=== PATIENT | male | born 1990 | race Hispanic/Latino ===

== ENCOUNTER 2019-04-04 14:10 | Observation (INO) | payer SELFPAY ==
[~2019-04-04] VITALS: Ht 188 cm; Wt 114.8 kg
[2019-04-04] MEDS ORDERED: SODIUM CHLORIDE 0.9% 1000ML 1,000 ML IV STA ×2 (14:16→16:30)
[2019-04-04] MEDS ORDERED: ONDANSETRON HCL INJ 2MG/ML 2ML 2 MG/ML VIAL IV NR (14:30)
[2019-04-04] MEDS ORDERED: KETOROLAC TROMETHAMINE 30 MG/ML VIAL IV NR (14:30)
[2019-04-04] MEDS ORDERED: MORPHINE SULFATE INJ 4 MG/ML INJ 1ML IV NR (14:30)
[2019-04-04] MEDS ORDERED: FAMOTIDINE 20 MG/2 ML VIAL IV NR (14:30)
[2019-04-04 14:39] LABS: BILIRUBIN,URINE NEGATIVE (NEGATIVE); CLARITY,URINE SL CLOUDY (CLEAR); COLOR,URINE YELLOW (YELLOW); KETONES,URINE NEGATIVE (NEGATIVE); LEUKOCYTE ESTERASE ,URINE NEGATIVE (NEGATIVE); NITRITE,URINE NEGATIVE (NEGATIVE); PROTEIN,URINE DIPSTICK TRACE (NEGATIVE); URINE UROBILINOGEN 0.2 mg/dL (0.2 - 1)
--- NOTE | 2019-04-04 14:41 | NUR ---
pt states he had a monster and a piece of bread that was sitting in his car from last night
[2019-04-04 14:49] LABS: BASOPHILS % 0.4 % (0.0-1.0); EOSINOPHILS % 0.1 % (0.0-6.0); HEMATOCRIT 40.9 % (38.2-49.6); HEMOGLOBIN 14.4 g/dL (14.0-18.0); LYMPHOCYTES # (AUTO) 1.5 (1.0-3.2); LYMPHOCYTES % 13.2 % (18.0-39.1); MEAN CORPUSCULAR HGB CONC 35.2 g/dL (31-35); MEAN CORPUSCULAR VOLUME 79.6 fL (81-99); MONOCYTES # (AUTO) 0.5 (0.2-0.8); MONOCYTES % 4.2 % (4.4-11.3); NEUTROPHILS # (AUTO) 9.3 (2.1-6.9); NEUTROPHILS % 81.7 % (38.7-80.0); PLATELET COUNT 260 x10e3/uL (140-360); RED BLOOD COUNT 5.14 x10e6/uL (4.3-5.7); RED CELL DISTRIBUTION WIDTH 12.6 % (11.7-14.4)
[2019-04-04 14:54] LABS: BACTERIA,URINE MANY /HPF; RBC,URINE 21-50 /HPF (0-5); WBC,URINE (MAN) 0-5 /HPF (0-5)
[2019-04-04 15:07] LABS: ALANINE AMINOTRANSFERASE 75 IU/L (0-55); ALBUMIN 4.5 g/dL (3.5-5.0); ALBUMIN/GLOBULIN RATIO 1.3 (0.8-2.0); ALKALINE PHOSPHATASE 114 IU/L (40-150); AMYLASE 87 U/L (25-125); ANION GAP 13.7 mmol/L (8-16); BLOOD UREA NITROGEN 14 mg/dL (7-26); BUN/CREATININE RATIO 13 (6-25); CALCIUM 10.1 mg/dL (8.4-10.2); CARBON DIOXIDE 25 mmol/L (22-29); CHLORIDE 105 mmol/L (98-107); EST GLOMERULAR FILTRATION RATE > 60 ML/MIN (60-); GLUCOSE 120 mg/dL (74-118); LIPASE 12 U/L (8-78); POTASSIUM 3.7 mmol/L (3.5-5.1); SODIUM 140 mmol/L (136-145)
--- NOTE | 2019-04-04 17:39 | Diagnostic Imaging Report ---
CT of the abdomen and pelvis History: Abdominal pain Comparison: None available. Technique: Multidetector CT scanning of the abdomen and pelvis was performed from the level of the lung bases to the inferior pubic ramus with IV contrast. DOSE REDUCTION: The examination was performed according to departmental dose-optimization program which includes automated exposure control, adjustment of the mA and/or kV according to patient size and/or use of iterative reconstruction technique. Discussion: The lung bases are clear. The liver is diffusely hypoattenuating compatible with steatosis. No focal hepatic lesions are identified. The gallbladder is present. No gallstones are identified. There is no intrahepatic or extrahepatic biliary dilatation. The spleen is within normal limits. The bilateral adrenal glands are normal. The pancreas is homogeneous in attenuation. There is no pancreatic ductal dilatation or peripancreatic inflammatory stranding. The kidneys are normal in size and enhance symmetrically. There is no hydroureteronephrosis bilaterally. There is a 3 mm calcific density on axial image 35 and coronal image 68 which is difficult to resolve if it is adjacent to the proximal left ureter or within the proximal left ureter. There is no evidence of nephroureterolithiasis. The stomach, small, and large bowel are nonobstructed. No bowel wall thickening is appreciated. The tip of the appendix measures up to 13 mm in diameter and is best appreciated on axial image 68. The proximal appendix measures 8 mm in diameter. A small appendicolith is present. The appendiceal wall does not appear thickened and there is no periappendiceal inflammatory stranding or fluid collection. There is no free intraperitoneal air or ascites. The abdominal aorta is of normal course and caliber. The urinary bladder is within normal limits. No acute osseous antibodies are identified. IMPRESSION: 1. The tip of the appendix is dilated measuring up to 13 mm in diameter. The proximal appendix measures 8 mm in diameter. A small appendicolith is present. While there is no significant periappendiceal inflammatory stranding the possibility of an early tip appendicitis is not excluded. Recommend correlation with point tenderness. 2. 3 mm calcific density adjacent to the left proximal ureter. Its difficult to resolve on this CT scan if this is within the left proximal ureter or just adjacent to the ureter. There is no proximal dilatation of the left ureter hydronephrosis to suggest an obstructing stone. 3. Hepatic steatosis. Signed by: Daniel Uriarte MD on 04/04/2019 5:35 PM
--- OUTSIDE RECORDS SUMMARY | 2019-04-04 18:18 | XMS REPORT ---
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 Allergies, Adverse Reactions, Alerts This patient has no known allergies or adverse reactions. Medications This patient has no known medications. Results Test Description Test Time Test Comments Text Results Atomic Results Result Comments CT ABDOMEN/PELVIS W 2019-04-04 17:20:00 [place] [address] Patient Name: LIZABETH CAMPBELL MR #: [id number] : 1990 Age/Sex: 28/M Req #: [id number] Adm Physician: Ordered by: PASCUAL GONZALEZ NP Report #: [id number] Location: ER Room/Bed: Procedure: [id number] CT/CT ABDOMEN/PELVIS W Exam Date: 04/04/19 Exam Time: 1700 REPORT STATUS: Signed CT of the abdomen and pelvis History: Abdominal p ain Comparison: None available. Technique: Multidetector CT scanning of the abdomen and pelvis was performed from the level of the lung bases to the inferior pubic ramus with IV contrast. DOSE REDUCTION: The examination was performed according to departmental dose-optimization program which includes automated exposure control, adjustment of the mA and/or kV according to patient size and/or use of iterative reconstruction technique. Discussion: The lung bases are clear. The liver is diffusely hypoattenuating compatible with steatosis. No focal hepatic lesions are identified. The gallbladder is present. No gallstones are identified. There is no intrahepatic or extrahepatic biliary dilatation. The spleen is within normal limits. The bilateral adrenal glands are normal. The pancreas is homogeneous in attenuation. There is no pancreatic ductal dilatation or peripancreatic inflammatory stranding. The kidneys are normal in size and enhance symmetrically. There is no hydroureteronephrosis bilaterally. There is a 3 mm calcific density on axial image 35 and coronal image 68 which is difficult to resolve if it is adjacent to the proximal left ureter or within the proximal left ureter. There is no evidence of nephroureterolithiasis. The stomach, small, and large bowel are nonobstructed. No bowel wall thickening is appreciated. The tip of the appendix measures up to 13 mm in diameter and is best appreciated on axial image 68. The proximal appendix measures 8 mm in diameter. A small appendicolith is present. The appendiceal wall does not appear thickened and there is no periappendiceal inflammatory stranding or fluid collection. There is no free intraperitoneal air or ascites. The abdominal aorta is of normal course and caliber. The urinary bladder is within normal limits. No acute osseous antibodies are identified. IMPRESSION: 1. The tip of the appendix is dilated measuring up to 13 mm in diameter. The proximal appendix measures 8 mm in diameter. A small appendicolith is present. While there is no significant periappendiceal inflammatory stranding the possibility of an early tip appendicitis is not excluded. Recommend correlation with point tenderness. 2. 3 mm calcific density adjacent to the left proximal ureter. Its difficult to resolve on this CT scan if this is within the left proximal ureter or just adjacent to the ureter. There is no proximal dilatation of the left ureter hydronephrosis to suggest an obstructing stone. 3. Hepatic steatosis. Signed by: Daniel Diaz MD on 04/04/2019 5:35 PM Dictated By: DANIEL DIAZ MD 173 Transcribed By: THOMAS on 04/04/191734 COPY TO: PASCUAL GONZALEZ NP
[2019-04-04] MEDS: SODIUM CHLORIDE 0.9% 1000ML 1,000 ML IV SCH (18:35)
[2019-04-04] MEDS ORDERED: SODIUM CHLORIDE 0.9% 50ML 50 ML ONE (18:43)
[2019-04-04] MEDS ORDERED: IOPAMIDOL 370 MG/ML 200 ML INFUS..BTL INJ ONE (18:43)
[2019-04-04 19:55] VITALS: BP 123/84
--- NOTE | 2019-04-04 19:55 | NUR ---
PT ARRIVED TO ROOM 101 BY WHEELCHAIR. PT IS AAOX3, RR EVEN AND NON-LABORED, ON ROOM AIR. NO S/SX OF DISTRESS NOTED. PT AMBULATED WITHOUT ASSIST TO BATHROOM AND TO BED. ORIENTED PT TO HOSPITAL ROOM, CALL LIGHT, BED CONTROLS AND LIGHTS. LEFT PT LAYING SEMI FOWLERS IN BED, BED IN LOW LOCKED POSITION, SIDE RAILS UPX2, CALL LIGHT AND PHONE WITHIN REACH.
[2019-04-04 20:47] VITALS: BP 123/84
--- NOTE | 2019-04-04 21:30 | NUR ---
SPOKE WITH MD ESCOBEDO CONCERNING CONSULTATION. NEW ORDERS RECEIVED, CLEAR LIQUIDS TILL MIDNIGHT THEN NPO.
[2019-04-04 21:34] VITALS: BP 123/84
[2019-04-05] VITALS (8 sets, daily range): BP systolic 123–157; BP diastolic 68–96
[2019-04-05] MEDS: MORPHINE SULFATE INJ 4 MG/ML INJ 1ML IV PRN ×3 (02:45→21:07)
[2019-04-05] MEDS: SODIUM CHLORIDE 0.9% 1000ML 1,000 ML IV SCH ×4 (02:45→20:24)
[2019-04-05] MEDS: ONDANSETRON HCL INJ 2MG/ML 2ML 2 MG/ML VIAL IV PRN ×3 (02:45→21:07)
[2019-04-05 05:22] LABS: BASOPHILS % 0.5 % (0.0-1.0); EOSINOPHILS # (AUTO) 0.1 (0.0-0.4); EOSINOPHILS % 1.5 % (0.0-6.0); HEMATOCRIT 39.5 % (38.2-49.6); HEMOGLOBIN 13.3 g/dL (14.0-18.0); LYMPHOCYTES # (AUTO) 1.7 (1.0-3.2); LYMPHOCYTES % 20.8 % (18.0-39.1); MEAN CORPUSCULAR HEMOGLOBIN 27.7 pg (28-32); MEAN CORPUSCULAR HGB CONC 33.7 g/dL (31-35); MEAN CORPUSCULAR VOLUME 82.3 fL (81-99); MONOCYTES # (AUTO) 0.7 (0.2-0.8); NEUTROPHILS # (AUTO) 5.6 (2.1-6.9); NEUTROPHILS % 68.8 % (38.7-80.0); PLATELET COUNT 240 x10e3/uL (140-360); RED CELL DISTRIBUTION WIDTH 12.8 % (11.7-14.4)
[2019-04-05 05:38] LABS: ALANINE AMINOTRANSFERASE 54 IU/L (0-55); ALBUMIN/GLOBULIN RATIO 1.2 (0.8-2.0); ALKALINE PHOSPHATASE 97 IU/L (40-150); ANION GAP 10.9 mmol/L (8-16); BLOOD UREA NITROGEN 12 mg/dL (7-26); BUN/CREATININE RATIO 13 (6-25); CALCIUM 8.9 mg/dL (8.4-10.2); CARBON DIOXIDE 24 mmol/L (22-29); CHLORIDE 109 mmol/L (98-107); CREATININE, SERUM 0.92 mg/dL (0.72-1.25); EST GLOMERULAR FILTRATION RATE > 60 ML/MIN (60-); GLUCOSE 105 mg/dL (74-118); POTASSIUM 3.9 mmol/L (3.5-5.1); SODIUM 140 mmol/L (136-145)
[2019-04-05 05:40] LABS: ALBUMIN 3.5 g/dL (3.5-5.0)
--- NOTE | 2019-04-05 10:15 | NUR ---
Assessment: Pt concerned about pain. Pt's girlfriend at bedside. Pt identifies as [employer]. Intervention: Provided hospitality and empathic listening. Provided prayer. Provided information on how to reach dog or animal sitter, if needed. Outcome: Pt & girlfriend expressed appreciation for visit. No need for follow up indicated at this time. SANDRA PARMAR Nipple Machine Operator Spiritual Care Department O: [phone] Pager: [phone] ([phone] number calling from)
[2019-04-05] MEDS ORDERED: BUPIVACAINE 0.25%/EPI 30ML SDV INJ ONE (12:30)
[2019-04-05] MEDS ORDERED: SUGAMMADEX SODIUM 200 MG/2 ML VIAL IV ONE (14:01)
[2019-04-05] MEDS ORDERED: MIDAZOLAM HCL 2 MG/2 ML VIAL ONE (14:23)
[2019-04-05] MEDS ORDERED: FENTANYL CITRATE/PF 100MCG/2 ML INJ ONE (14:23)
--- NOTE | 2019-04-05 15:52 | NUR ---
GAVE PACKET OF INFORMATION WITH COMMUNITY [employer] FOR ASSISTANCE WITH LOW TO NO INCOME TO PATIENT. RESOURCES THAT PATIENT MAY BE ABLE TO FOLLOW UP UPON DISCHARGE. PT EDUCATED ON EACH RESOURCE AND UNDERSTANDING HOW TO FOLLOW UP TO SEE IF QUALIFIED FOR EACH RESOURCE
[2019-04-05] MEDS ORDERED: SEVOFLURANE INHAL SOLN 250 ML PEN BTL ONE (18:06)
[2019-04-05] MEDS ORDERED: PROPOFOL IV EMULSION 10 MG/ML 20 ML VIAL ONE (18:06)
[2019-04-05] MEDS ORDERED: ONDANSETRON HCL INJ 2MG/ML 2ML 2 MG/ML VIAL ONE (18:06)
[2019-04-05] MEDS ORDERED: LIDOCAINE HCL 2% LOCAL INJ 5 ML SDV VIAL INJ ONE (18:06)
[2019-04-05] MEDS ORDERED: GLYCOPYRROLATE INJ 1MG/ 5 ML SYR ONE (18:06)
[2019-04-05] MEDS ORDERED: NEOSTIGMINE 5 MG/5ML SYR ONE (18:06)
[2019-04-05] MEDS ORDERED: ACETAMINOPHEN 1000 MG/100 ML IV ONE (18:06)
[2019-04-05] MEDS ORDERED: ROCURONIUM BROMIDE 10 MG/ML 5ML VIAL ONE (18:06)
[2019-04-05] MEDS ORDERED: DEXAMETHASONE SOD PHOS INJ 4 MG/ML VIAL ONE (18:06)
--- NOTE | 2019-04-05 18:36 | Operative Report ---
DATE OF PROCEDURE: 04/05/2019 SURGEON: Amando Rushing MD PREOPERATIVE DIAGNOSIS: Appendicitis. POSTOPERATIVE DIAGNOSIS: Appendicitis. OPERATIVE PROCEDURE: Laparoscopic appendectomy. ANESTHESIA: General. INDICATION: A 28-year-old male with history of abdominal pain in the left lower quadrant for 1-day with CT scan confirming appendicitis. The patient consented for laparoscopic appendectomy. Attendant risks have been discussed. PROCEDURE FINDING: Early inflamed appendicitis. DESCRIPTION OF PROCEDURE: The patient was brought to the OR intubated. The abdomen was prepped and draped in sterile fashion. An infraumbilical incision was made and a 12 mm port inserted. Insufflation then began. Under direct vision, all the port sites placed in the right upper quadrant and suprapubic region. Appendix was noted to be mildly inflamed and dilated with fecalith. The mesoappendix controlled with the LigaSure down to the neck, which was ligated with Endoloop 0 PDS. The appendix then amputated distal to the thigh with the LigaSure instrument. The appendix placed in an Endopouch and retrieved out of the peritoneal cavity. Operative field irrigated and hemostasis achieved. All ports removed under direct vision. Fascial closure with 0 Vicryl. Skin then closed with subcuticular stitch. The patient was then extubated and transported to recovery room in guarded condition. ESTIMATED BLOOD LOSS: 5 mL. Amando Rushing MD DNL/MODL /[id number]
--- NOTE | 2019-04-05 19:05 | Discharge Summary ---
HOSPITAL COURSE: A 28-year-old male with past medical history negative for any significant condition, came here with appendicitis. He underwent laparoscopic appendectomy by Dr. Amando Rushing, surgeon. PHYSICAL EXAMINATION: VITAL SIGNS: Blood pressure 157/96, temperature 36.6, heart rate 74 per minute, respiratory rate 19 per minute, and oxygen saturation 98%. HEART: Showed regular rhythm. Normal S1, S2 sound. LUNGS: Clear bilaterally. ABDOMEN: Soft. Bowel sounds negative. Tenderness on the incision areas. FINAL IMPRESSION: Acute appendicitis, status post appendectomy. PLAN OF TREATMENT: The patient is going to be discharged home with Ultracet 1 tablet q.4 hours as needed for pain. Follow up with Dr. Rushing, the surgeon in approximately a week. Diet as tolerated. MD KATHLEEN Wright/AMANDA /[id number]
[2019-04-06 00:42] VITALS: BP 112/59
--- NOTE | 2019-04-06 01:03 | History and Physical ---
HISTORY OF PRESENT ILLNESS: A 28-year-old male with no past medical history, came here with abdominal pain. He was found to have appendicitis. He already underwent appendectomy by Dr. Rushing. REVIEW OF SYSTEMS: CARDIOVASCULAR: No chest pain or palpitation. RESPIRATORY: No shortness of breath. No cough. GASTROINTESTINAL: He had abdominal pain. GENITOURINARY: No frequency or dysuria. ALLERGIES: NOT ALLERGIC TO ANY MEDICATION. SOCIAL HISTORY: He does not smoke. He does not drink. PAST MEDICAL HISTORY: Negative for any significant medical condition. PHYSICAL EXAMINATION: VITAL SIGNS: Blood pressure 157/96, temperature 36.6, heart rate 74 per minute, respiratory rate 19 per minute, and oxygen saturation 98%. HEART: Regular rhythm. Normal S1, S2 sound. LUNGS: Clear bilaterally. ABDOMEN: Soft. An incision from the appendectomy. Bowel sounds are negative. EXTREMITIES: Show no evidence of edema. LABORATORY DATA: On the BMP; sodium 140, potassium 3.9, chloride 109, CO2 24, BUN 12, creatinine 0.92. Glucose 105. On CBC, white count 8.16, hemoglobin 13.3, hematocrit 39.5, platelet count 240,000. AST 34, ALT 54, total bilirubin 0.7, alkaline phosphatase 77. Abdominal CT showed evidence of an inflammation in the appendix with appendicolith. FINAL IMPRESSION: Acute appendicitis, status post appendectomy. PLAN OF TREATMENT: Start diet according to surgical recommendation. Discharge home tomorrow. MD KATHLEEN Wright/AMANDA /[id number]
[2019-04-06 05:23] VITALS: BP 134/77
[2019-04-06] MEDS: SODIUM CHLORIDE 0.9% 1000ML 1,000 ML IV SCH (07:00)
[2019-04-06 07:59] VITALS: BP 145/94
[2019-04-06 08:00] VITALS: BP 145/94
[2019-04-06] MEDS ORDERED: ULTRACET TABLE1 EACH PO (09:06)
--- NOTE | 2019-04-06 09:20 | NUR ---
patient alert and oriented with family at bedside. discharge instructions given at this time, patient verbalized understanding. IV discontinued, catheter in tact, pressure held for 2 minutes and small dressing applied. patient to be wheeled out to personal auto for family to drive home.
== END 2019-04-06 09:38 | disposition home or self-care (01) ==
LOC: ER 14:10 → ERHOLD 18:02 → MED/SURG 19:55
PROVIDERS: ADMIT Internal Medicine; ATTEND Internal Medicine
DX: K35.80 Unspecified acute appendicitis (principal)
CPT/HCPCS: 36415 ×2; 44970; 74177; 80053 ×2; 81001; 82150; 83690; 85025 ×2; 87086; 88304; 99284; G0378 ×3; J1885; J2250; J2270 ×2; J2405 ×2; J3010; J7030 ×2; Q9967; J1100; J2001

== ENCOUNTER 2019-04-09 08:21 | Emergency (ER) | payer SELFPAY ==
[~2019-04-09] VITALS: Ht 188 cm; Wt 114.8 kg
[~2019-04-09 08:21] MED LIST: ULTRACET TABLE1 EACH PO
[2019-04-09] MEDS ORDERED: SODIUM CHLORIDE 0.9% 1000ML 1,000 ML IV STA (08:40)
--- NOTE | 2019-04-09 08:43 | NUR ---
DR. NAVARRO AT BEDSIDE RE EVALUATING PATIENT.
[2019-04-09 08:58] LABS: BILIRUBIN,URINE NEGATIVE (NEGATIVE); CLARITY,URINE CLOUDY (CLEAR); COLOR,URINE YELLOW (YELLOW); KETONES,URINE NEGATIVE (NEGATIVE); LEUKOCYTE ESTERASE ,URINE NEGATIVE (NEGATIVE); NITRITE,URINE NEGATIVE (NEGATIVE); PROTEIN,URINE DIPSTICK TRACE (NEGATIVE); URINE UROBILINOGEN 0.2 mg/dL (0.2 - 1)
[2019-04-09] MEDS ORDERED: MORPHINE SULFATE 2 MG/ML SYR 1ML IV ONE (09:00)
[2019-04-09 09:05] LABS: AMORPHOUS SEDIMENT,URINE MANY (FEW); BACTERIA,URINE MANY /HPF; EPITHELIAL CELLS,URINE MANY /LPF; RBC,URINE >50 /HPF (0-5); WBC,URINE (MAN) 21-50 /HPF (0-5)
[2019-04-09 09:22] LABS: BASOPHILS % 0.4 % (0.0-1.0); EOSINOPHILS # (AUTO) 0.1 (0.0-0.4); EOSINOPHILS % 0.6 % (0.0-6.0); HEMATOCRIT 41.7 % (38.2-49.6); HEMOGLOBIN 14.4 g/dL (14.0-18.0); LYMPHOCYTES # (AUTO) 1.4 (1.0-3.2); LYMPHOCYTES % 14.1 % (18.0-39.1); MEAN CORPUSCULAR HEMOGLOBIN 27.7 pg (28-32); MEAN CORPUSCULAR HGB CONC 34.5 g/dL (31-35); MEAN CORPUSCULAR VOLUME 80.2 fL (81-99); MONOCYTES # (AUTO) 0.6 (0.2-0.8); MONOCYTES % 5.9 % (4.4-11.3); NEUTROPHILS # (AUTO) 7.7 (2.1-6.9); NEUTROPHILS % 78.6 % (38.7-80.0); PLATELET COUNT 257 x10e3/uL (140-360); RED CELL DISTRIBUTION WIDTH 12.6 % (11.7-14.4)
[2019-04-09] MEDS ORDERED: ONDANSETRON HCL INJ 2MG/ML 2ML 2 MG/ML VIAL IV ONE (09:30)
[2019-04-09] MEDS ORDERED: KETOROLAC TROMETHAMINE 30 MG/ML VIAL IV ONE (09:30)
[2019-04-09] MEDS ORDERED: MORPHINE SULFATE INJ 4 MG/ML INJ 1ML IV ONE (09:30)
[2019-04-09 09:43] LABS: ALANINE AMINOTRANSFERASE 83 IU/L (0-55); ALBUMIN 3.9 g/dL (3.5-5.0); ALBUMIN/GLOBULIN RATIO 1.1 (0.8-2.0); ALKALINE PHOSPHATASE 130 IU/L (40-150); ANION GAP 10.9 mmol/L (8-16); BLOOD UREA NITROGEN 13 mg/dL (7-26); BUN/CREATININE RATIO 11 (6-25); CALCIUM 9.5 mg/dL (8.4-10.2); CARBON DIOXIDE 31 mmol/L (22-29); CHLORIDE 105 mmol/L (98-107); CREATININE, SERUM 1.18 mg/dL (0.72-1.25); EST GLOMERULAR FILTRATION RATE > 60 ML/MIN (60-); GLUCOSE 113 mg/dL (74-118); POTASSIUM 3.9 mmol/L (3.5-5.1); SODIUM 143 mmol/L (136-145)
[2019-04-09] MEDS ORDERED: CEFTRIAXONE SOD 1 GM/NS 50 ML 50 ML IV ONE (10:45)
--- NOTE | 2019-04-09 10:46 | Diagnostic Imaging Report ---
EXAM: CT Abdomen and Pelvis WITHOUT contrast INDICATION: Stone protocol. COMPARISON: CT abdomen/pelvis with contrast 04/04/2019. TECHNIQUE: Abdomen and pelvis were scanned utilizing a multidetector helical scanner from the lung base to the pubic symphysis without administration of IV contrast. Absence of intravenous contrast decreases sensitivity for detection of focal lesions and vascular pathology. Coronal and sagittal reformations were obtained. Routine protocol was performed. IV CONTRAST: None. ORAL CONTRAST: None. RADIATION DOSE: Total DLP: 793.8 mGy*cm Estimated effective dose: (DLP x 0.015 x size factor) mSv COMPLICATIONS: None FINDINGS: LINES and TUBES: None. LOWER THORAX: Unremarkable HEPATOBILIARY: Diffuse hepatic steatosis. No focal hepatic lesions. No biliary ductal dilation. GALLBLADDER: No radio-opaque stones or sludge. No wall thickening. SPLEEN: No splenomegaly. PANCREAS: No focal masses or ductal dilatation. ADRENALS: No adrenal nodules KIDNEYS/URETERS: There is a 3 mm proximal to mid left ureteral stone with mild left hydronephrosis. The stone has advanced from the prior study. GI TRACT: No abnormal distention, wall thickening, or evidence of bowel obstruction. Status post interval appendectomy with mild inflammatory changes in the right lower quadrant. PELVIC ORGANS/BLADDER: Unremarkable. LYMPH NODES: No lymphadenopathy. VESSELS: Unremarkable. PERITONEUM / RETROPERITONEUM: No free air or fluid. BONES: Unremarkable. SOFT TISSUES: Postsurgical changes in the periumbilical region. IMPRESSION: A 3 mm obstructing proximal to mid left ureteral stone, with interval advancement from the prior CT, with mild left hydronephrosis. Status post interval appendectomy. Signed by: Dr. Adriel Sainz MD on 04/09/2019 10:43 AM
--- NOTE | 2019-04-09 11:41 | NUR ---
PATIENT GIVEN STRAINER FOR URINE DR. NAVARRO SPOKE WITH PATIENT MULTIPLE TIMES. HE ASKS THE SAME QUESTIONS TO BOTH OF US
== END 2019-04-09 11:54 | disposition home or self-care (01) ==
LOC: ER 08:21
DX: R10.32 Left lower quadrant pain (principal); R11.0 Nausea; N20.1 Calculus of ureter; N30.91 Cystitis, unspecified with hematuria
CPT/HCPCS: 36415; 74176; 80053; 81001; 85025; 87086; 87186; 99284; J0696; J1885; J2270; J2405; J7030